=== PATIENT | female | born 1990 | race Hispanic/Latino ===

== ENCOUNTER 2017-05-23 22:49 | Emergency (ER) | payer BC ==
[~2017-05-23] VITALS: Ht 152.4 cm; Wt 84.2 kg
[2017-05-23] MEDS ORDERED: PROAIR HFA IN (23:05)
[2017-05-23 23:50] LABS: HEMOGLOBIN 14.4 g/dl (12.0-16.0); IMMATURE GRANULOCYTES 0.3 % (0.0-1.0); MEAN CELL VOLUME 85.4 fL CALC (80.0-100.0); MEAN CORPUSCULAR HGB 29.3 pG CALC (26.0-32.0); MEAN CORPUSCULAR HGB CONC 34.3 g/L CALC (32.0-36.0); NEUT# 6.84 thou/uL (2.00-7.15); RED BLOOD COUNT 4.92 mill/uL (4.20-5.60); RED CELL DISTRI WIDTH 12.8 % (11.5-15.5)
[2017-05-23 23:54] LABS: URINE BLOOD DIPSTICK LARGE (NEGATIVE); URINE CLARITY SLIGHT CLOUDY; URINE COLOR RED; URINE GLUCOSE - DIPSTICK NEGATIVE (NEGATIVE); URINE KETONE NEGATIVE (NEGATIVE); URINE LEUK ESTERASE NEGATIVE (NEGATIVE); URINE NITRITE - DIPSTICK NEGATIVE (Negative); URINE PH 6.5 (4.5-8.0); URINE PROTEIN - DIPSTICK 30 mg/dL (NEG-TRACE); URINE SPECIFIC GRAVITY 1.025
[2017-05-24 00:12] LABS: URINE BACTERIA FEW hpf; URINE BILIRUBIN - DIPSTICK NEGATIVE (NEGATIVE); URINE MUCUS FEW hpf (NONE-FEW); URINE RBC TNTC RBC/hpf (0-5); URINE WBC 0-2 WBC/hpf (0-5)
[2017-05-24 00:15] LABS: ALBUMIN 4.9 g/dL (3.2-5.0); ALKALINE PHOSPHATASE 55 u/l (38-126); ANION GAP 18 (6-22 (CALC)); BILIRUBIN, TOTAL 0.4 mg/dL (0.0-1.4); BUN 11 mg/dL (7-17); BUN/CREATININE RATIO 16 (12-20 (CALC)); CALCIUM 9.8 mg/dL (8.4-10.2); CARBON DIOXIDE 22 mmol/l (22-30); CHLORIDE 103 mmol/l (95-108); CREATININE 0.7 mg/dL (0.5-1.0); GFR > 60 ML/MIN (>=60 (CALC)); GFR FOR AFR.AMER. > 60 ML/MIN (>=60 (CALC)); GLUCOSE 84 mg/dL (65-105); POTASSIUM 4.1 mmol/l (3.5-5.1); SGOT/AST 25 u/l (14-36); SGPT/ALT 33 u/l (9-52); SODIUM 140 mmol/l (137-146); TOTAL PROTEIN 8.3 g/dL (6.3-8.2)
[2017-05-24 00:32] LABS: BETA-HCG, QUANT(RESULT NUMBER) 6568 mIU/mL
[2017-05-24 03:39] VITALS: BP 110/62
== END 2017-05-24 03:38 | disposition home or self-care (01) | DRG 778 ==
LOC: ED 22:49
PROVIDERS: Emergency Medicine
DX: O20.9 Hemorrhage in early pregnancy, unspecified (principal); Z3A.01 Less than 8 weeks gestation of pregnancy